=== PATIENT | male | born 2000 | race Hispanic/Latino ===

== ENCOUNTER 2019-04-22 14:24 | Emergency (ER) | payer OTHER ==
[~2019-04-22] VITALS: Ht 175.3 cm; Wt 68.1 kg
[2019-04-22] MEDS ORDERED: IBUP-1114 PO (14:31)
[2019-04-22] MEDS ORDERED: POLYSOL OD (16:02)
[2019-04-22 16:10] VITALS: BP 119/59
[2019-04-22] MEDS ORDERED: POLY2.5S OD (17:06)
== END 2019-04-22 16:11 | disposition home or self-care (01) ==
LOC: M ED 14:24
DX: H10.31 Unspecified acute conjunctivitis, right eye (principal)